=== PATIENT | female | born 1990 | race Caucasian/White ===

== ENCOUNTER 2017-12-28 01:07 | Inpatient (IN) | payer OTHER ==
[2017-12-28] MEDS: ACETAMINOPHEN 500 MG TAB PO (06:45)
[2017-12-28] MEDS: SOD CHLORIDE 0.9% 1,000 ML IV ×3 (06:46→22:43)
[2017-12-28 07:14] LABS: ADD MAN DIFF? NO
[2017-12-28 07:17] LABS: WHITE BLOOD COUNT 19.3 10^3/ul (4.8-10.8)
[2017-12-28 07:17] LABS: BASOPHIL # 0.1 10^3/ul (0.0-0.1); BASOPHILS % 0.3 % (0.0-2.0); EOSINOPHILS # 0.1 10^3/ul (0.0-0.5); EOSINOPHILS % 0.4 % (0.0-7.0); HEMATOCRIT 37.1 % (37.0-47.0); HEMOGLOBIN 12.6 g/dl (12.0-16.0); LYMPHOCYTES % 10.2 % (15.0-51.0); MEAN CORPUSCULAR VOLUME 85.3 fl (82.0-101.0); MEAN PLATELET VOLUME 10.6 fl (7.4-10.4); MONOCYTE # 0.9 10^3/ul (0.3-0.9); MONOCYTES % 4.9 % (0.0-11.0); NEUTROPHIL # 16.1 10^3/ul (1.6-7.5); NEUTROPHILS % 83.7 % (39.0-77.0); PLATELET COUNT 253 10^3/UL (140-415); RED BLOOD COUNT 4.35 10^6/ul (4.20-5.40); RED CELL DISTRIBUTION WIDTH 12.8 % (11.5-14.5)
[2017-12-28 07:34] LABS: ADD UMIC YES; UR ASCORBIC ACID NEGATIVE (NEGATIVE); UR BACTERIA FEW /HPF (NONE SEEN); UR BILIRUBIN (Dip) NEGATIVE (NEGATIVE); UR BLOOD (Dip) 2+ mg/dL (NEGATIVE); UR CLARITY CLOUDY (CLEAR); UR COLOR YELLOW (YELLOW); UR GLUCOSE (Dip) NEGATIVE (NEGATIVE); UR KETONES (Dip) NEGATIVE (NEGATIVE); UR LEUKOCYTE ESTERASE (Dip) 3+ Leu/ul (NEGATIVE); UR MUCUS FEW /HPF (NONE SEEN); UR NITRITE (Dip) NEGATIVE (NEGATIVE); UR RBC 49 /HPF (0-5); UR SPECIFIC GRAVITY (Dip) 1.021 (1.003-1.030); UR SQUAMOUS EPITHELIAL CELL MANY /HPF (FEW); UR TOTAL PROTEIN (Dip) 1+ mg/dl (NEGATIVE); UR UROBILINOGEN (Dip) NEGATIVE (NEGATIVE); UR WBC > 182 /HPF (0-5)
[2017-12-28 07:37] LABS: INR 0.99; PROTIME 13.2 Sec (11.9-14.9)
[2017-12-28 07:38] LABS: PARTIAL THROMBOPLASTIN TIME 27.3 Sec (25.0-35.0)
[2017-12-28 07:41] LABS: ALANINE AMINOTRANSFERASE 19 IU/L (13-69); ALBUMIN 4.3 g/dl (3.3-4.9); ALBUMIN/GLOBULIN RATIO 1.16; ALKALINE PHOSPHATASE 46 IU/L (42-121); AMYLASE 49 U/L (11-123); ANION GAP 18 (8-16); ASPARTATE AMINO TRANSFERASE 17 IU/L (15-46); BILIRUBIN,INDIRECT 0.2 mg/dl (0-1.1); BILIRUBIN,TOTAL 0.2 mg/dl (0.2-1.3); BLOOD UREA NITROGEN 6 mg/dl (7-20); CALCIUM 9.3 mg/dl (8.4-10.2); CARBON DIOXIDE 26 mmol/L (21-31); CHLORIDE 106 mmol/L (97-110); CREATININE 0.53 mg/dl (0.44-1.00); GLUCOSE 100 mg/dl (70-220); LIPASE 48 U/L (23-300); SODIUM 146 mmol/L (135-144)
[2017-12-28] MEDS ORDERED: CEFTRIAXONE 2 GM INJ IM (09:00)
[2017-12-28] MEDS: CEFTRIAXONE 2 GM/50 ML (PMX) 50 ML IVPB (09:42)
[2017-12-28] MEDS ORDERED: ACETAMINOPHEN 325 MG TAB PO (12:00)
[2017-12-28] MEDS ORDERED: ONDANSETRON 4 MG INJ IV (12:00)
[2017-12-29 05:37] LABS: ADD MAN DIFF? NO
[2017-12-29 05:46] LABS: BASOPHIL # 0.1 10^3/ul (0.0-0.1); BASOPHILS % 0.3 % (0.0-2.0); EOSINOPHILS # 0.2 10^3/ul (0.0-0.5); EOSINOPHILS % 0.9 % (0.0-7.0); HEMATOCRIT 33.4 % (37.0-47.0); HEMOGLOBIN 11.4 g/dl (12.0-16.0); LYMPHOCYTES # 2.2 10^3/ul (0.8-2.9); LYMPHOCYTES % 12.6 % (15.0-51.0); MEAN CORPUSCULAR HEMOGLOBIN 29.1 pg (29.0-33.0); MEAN CORPUSCULAR HGB CONC 34.1 g/dl (32.0-37.0); MEAN CORPUSCULAR VOLUME 85.2 fl (82.0-101.0); MEAN PLATELET VOLUME 10.8 fl (7.4-10.4); MONOCYTES % 5.8 % (0.0-11.0); NEUTROPHIL # 13.9 10^3/ul (1.6-7.5); NEUTROPHILS % 79.9 % (39.0-77.0); PLATELET COUNT 223 10^3/UL (140-415); RED BLOOD COUNT 3.92 10^6/ul (4.20-5.40)
[2017-12-29 05:46] LABS: WHITE BLOOD COUNT 17.4 10^3/ul (4.8-10.8)
[2017-12-29] MEDS: CEFTRIAXONE 2 GM/50 ML (PMX) 50 ML IVPB (08:36)
[2017-12-29] MEDS: SOD CHLORIDE 0.9% 1,000 ML IV ×2 (12:20→14:44)
[2017-12-29] MEDS: PIPER-TAZO 3.375 GM IV (PMX) 100 ML IVPB (15:26)
[2017-12-29] MEDS: OXYTOCIN 30 UNITS/LR 500 ML IV ×2 (17:20→22:28)
[2017-12-29] MEDS: MISOPROSTOL 200 MCG TAB PR (17:26)
[2017-12-29] MEDS: MISOPROSTOL 25 MCG CAPSULE PO (17:32)
[2017-12-29] MEDS: MISOPROSTOL 200 MCG TAB PO (17:44)
[2017-12-29] MEDS ORDERED: MISOPROSTOL 200 MCG TAB PR ×2 (18:30→22:30)
[2017-12-29] MEDS ORDERED: OXYTOCIN 30 UNITS/LR 500 ML IV ×2 (18:30→22:30)
[2017-12-29] MEDS ORDERED: HYDROCODONE/APAP (5/325) TAB PO (18:30)
[2017-12-29] MEDS ORDERED: CARBOPROST 250 MCG INJ IM ×2 (18:30→22:30)
[2017-12-29] MEDS ORDERED: METHYLERGONOVINE 0.2 MG INJ IM (18:30)
[2017-12-29] MEDS ORDERED: IBUPROFEN 600 MG TAB PO (18:30)
[2017-12-29] MEDS: OXYTOCIN 30 UNITS/LR 500 ML IVPB ×2 (19:31→20:13)
[2017-12-29] MEDS ORDERED: BUTORPHANOL 2 MG INJ (19:56)
[2017-12-29] MEDS: BUTORPHANOL 2 MG INJ IV (20:04)
[2017-12-29] MEDS ORDERED: LIDOCAINE 1% (MPF) 30 ML INJ INJ (20:30)
[2017-12-29 21:06] LABS: HEPATITIS B SURFACE ANTIGEN NEGATIVE (NEGATIVE)
[2017-12-29] MEDS ORDERED: PROPOFOL 20 ML (21:15)
[2017-12-29] MEDS ORDERED: FENTAnyl 50 MCG/ML VIAL (21:19)
[2017-12-29] MEDS ORDERED: MIDAZOLAM 1 MG/ML 2 ML INJ (21:20)
[2017-12-29] MEDS ORDERED: OXYTOCIN 10 UNIT INJ (21:46)
[2017-12-29] MEDS ORDERED: CEFAZOLIN 1 GM INJ (21:54)
[2017-12-29] MEDS ORDERED: OXYCODONE/ASPIRIN (4.88/325) TAB PO (22:30)
[2017-12-29] MEDS ORDERED: MIDAZOLAM 1 MG/ML 2 ML INJ IV (23:00)
[2017-12-29] MEDS ORDERED: MEPERIDINE 25 MG INJ IV (23:00)
[2017-12-29] MEDS ORDERED: OXYCODONE/ACETAMINOPHEN (5/325) TAB PO ×2 (23:00)
[2017-12-29] MEDS ORDERED: FENTAnyl 50 MCG/ML VIAL IV ×3 (23:00)
[2017-12-29] MEDS ORDERED: ONDANSETRON 4 MG INJ IV (23:00)
[2017-12-29] MEDS ORDERED: DIPHENHYDRAMINE 50 MG INJ IV (23:00)
[2017-12-29] MEDS ORDERED: METOCLOPRAMIDE 10 MG INJ IV (23:00)
[2017-12-29] MEDS: LACTATED RINGER'S 1,000 ML IV* (23:28)
[2017-12-29] MEDS: METHYLERGONOVINE 0.2 MG INJ IM (23:29)
[2017-12-30 05:06] LABS: ADD MAN DIFF? NO
[2017-12-30] MEDS: OXYTOCIN 30 UNITS/LR 500 ML IV (05:10)
[2017-12-30 05:12] LABS: BASOPHIL # 0.1 10^3/ul (0.0-0.1); BASOPHILS % 0.3 % (0.0-2.0); EOSINOPHILS # 0.1 10^3/ul (0.0-0.5); EOSINOPHILS % 0.6 % (0.0-7.0); HEMOGLOBIN 9.2 g/dl (12.0-16.0); LYMPHOCYTES # 2.4 10^3/ul (0.8-2.9); LYMPHOCYTES % 13.9 % (15.0-51.0); MEAN CORPUSCULAR HEMOGLOBIN 29.4 pg (29.0-33.0); MEAN CORPUSCULAR HGB CONC 34.1 g/dl (32.0-37.0); MEAN CORPUSCULAR VOLUME 86.3 fl (82.0-101.0); MEAN PLATELET VOLUME 10.8 fl (7.4-10.4); MONOCYTES % 5.8 % (0.0-11.0); NEUTROPHIL # 13.7 10^3/ul (1.6-7.5); NEUTROPHILS % 78.9 % (39.0-77.0); PLATELET COUNT 223 10^3/UL (140-415); RED BLOOD COUNT 3.13 10^6/ul (4.20-5.40); RED CELL DISTRIBUTION WIDTH 12.9 % (11.5-14.5)
[2017-12-30 05:12] LABS: WHITE BLOOD COUNT 17.4 10^3/ul (4.8-10.8)
[2017-12-30] MEDS: IBUPROFEN 600 MG TAB PO ×5 (06:03→23:45)
[2017-12-30] MEDS: CEFAZOLIN 1 GM/50 ML (PMX) 50 ML IV (06:03)
[2017-12-30] MEDS: LACTATED RINGER'S 1,000 ML IV* ×3 (06:28→22:28)
[2017-12-30] MEDS: CEPHALEXIN 500 MG CAP PO ×3 (12:32→23:45)
[2017-12-30 22:19] LABS: RAPID PLASMA REAGIN NONREACTIVE (NR)
[2017-12-31] MEDS: CEPHALEXIN 500 MG CAP PO ×2 (05:50→11:37)
[2017-12-31] MEDS: IBUPROFEN 600 MG TAB PO ×2 (05:50→11:38)
[2017-12-31] MEDS: LACTATED RINGER'S 1,000 ML IV* ×2 (06:28→14:28)
== END 2017-12-31 17:11 | disposition home or self-care (01) | DRG 767 ==
LOC: L-D 12-29 16:52 → MS1 12-30 01:16 → FTE 01:07 → L-D 12-29 21:52 → MS2 11:50
PROVIDERS: Obstetrics & Gynecology
PROC: 10D17Z9 Manual Extraction of Products of Conception, Retained, Via Natural or Artificial Opening (ICD-10-PCS; principal; 2017-12-29)
PROC: 3E033VJ Introduction of Other Hormone into Peripheral Vein, Percutaneous Approach (ICD-10-PCS; 2017-12-29)
DX: O42.912 Preterm premature rupture of membranes, unspecified as to length of time between rupture and onset of labor, second trimester (principal); Z37.1 Single stillbirth; O23.02 Infections of kidney in pregnancy, second trimester; Z3A.18 18 weeks gestation of pregnancy
CPT/HCPCS: 76805; 76816; 80053; 81001; 81025; 82150; 83690; 84702; 85025; 85610; 85730; 86592; 86900; 86901; 87086; 87340; 88307; 96361; 96374; 99285-25